=== PATIENT | male | born 1945 | race Caucasian/White ===

== ENCOUNTER → 2018-09-26 | Outpatient (REF) | payer MEDICARE, BC ==
[~2018-09-26] MED LIST: ACYCLOVIR400 MG PO; ADLT ASA LOW81 MG PO; ADVAIR DISK1 INH; ALBUTEROL S2.5 MG/.5 IN; ASPIRIN EC325 MG PO; ASPIRIN325 MG PO; AVELOX400 MG PO; AZITHROMYCIN500 MG PO; BAYER ASA325 MG PO; BENICAR HCT1 TA1 PO; BENICAR40 MG PO; DEXAMETHASONE OS; DOXYCYCL HYC100 MG PO; ESCITALOPRAM OX10 MG PO; FENOFIBRATE MI134 MG PO; FLOMAX0.4 M1 PO; HYDROCHLOROT12.5 MG PO; LANCET MICRO XX; LASIX 40 MG40 MG/TAB PO; LASIX40 MG PO; LEVAQUIN750 MG PO; LORAZEPAM0.5 MG PO; LOSARTAN POTASS25 MG PO; METFORMIN500 MG PO; METFORMIN850 MG PO; METOPROL TAR50 MG PO; NEBULIZER COMPRESSOR; NEOMYCIN OS; NICOTINE T21 MG/PATC TD; NORVASC10 M1 PO; POLYMYXIN B OS; PREDNISONE10 MG PO; PREDNISONE20 MG PO; PREDNISONE5 MG PO; PROVENTIL HFA INH; SIMVASTATIN40 MG PO; SPIRIVA HANDIHALER IN; TOPROL XL50 MG PO; TRAMADOL HCL50 MG PO; XANAX0.25 MG PO; XANAX0.5 MG PO
[2018-09-26 17:50] LABS: HEMATOCRIT 46.1 % (39.0-50.0); HEMOGLOBIN 14.9 g/dl (14.0-18.0); IMMATURE GRANULOCYTES 0.8 % (0.0-5.0); MEAN CORPUSCULAR HGB 29.7 pG CALC (26.0-32.0); MEAN CORPUSCULAR HGB CONC 32.3 g/L CALC (32.0-36.0); NEUT# 8.83 thou/uL (1.82-7.42); RED BLOOD COUNT 5.01 mill/uL (4.70-6.10); RED CELL DISTRI WIDTH 14.2 % (11.5-15.5)
[2018-09-26 18:10] LABS: ALBUMIN 4.2 g/dL (3.2-5.0); BILIRUBIN, TOTAL 0.7 mg/dL (0.0-1.4); CHOLESTEROL HDL RATIO 5.2 (<4.4 (CALC)); CREATININE 1.7 mg/dL (0.7-1.3); POTASSIUM 4.6 mmol/l (3.5-5.1); TOTAL PROTEIN 7.3 g/dL (6.3-8.2)
[2018-09-26 18:40] LABS: TSH, 3RD GENERATION 3.96 uIU/mL (0.47 - 4.68)
== END | disposition home or self-care (01) ==
LOC: LAB 16:28
PROVIDERS: ATTEND Internal Medicine
DX: E11.9 Type 2 diabetes mellitus without complications (principal); I10 Essential (primary) hypertension; E78.49 Other hyperlipidemia

== ENCOUNTER 2019-08-20 | Emergency (ER) | payer MEDICARE, BC ==
[2019-08-20 20:46] LABS: HEMATOCRIT 52.1 % (39.0-50.0); HEMOGLOBIN 16.8 g/dl (14.0-18.0); IMMATURE GRANULOCYTES 0.8 % (0.0-5.0); MEAN CELL VOLUME 91.6 fL CALC (80.0-100.0); MEAN CORPUSCULAR HGB 29.5 pG CALC (26.0-32.0); MEAN CORPUSCULAR HGB CONC 32.2 g/L CALC (32.0-36.0); NEUT# 13.76 thou/uL (1.82-7.42); RED BLOOD COUNT 5.69 mill/uL (4.70-6.10); RED CELL DISTRI WIDTH 14.6 % (11.5-15.5)
[2019-08-20 21:00] LABS: ALBUMIN 4.1 g/dL (3.2-5.0); CREATININE 1.8 mg/dL (0.7-1.3); POTASSIUM 3.7 mmol/l (3.5-5.1); TOTAL PROTEIN 7.9 g/dL (6.3-8.2)
[2019-08-20 21:04] LABS: BILIRUBIN, TOTAL 2.4 mg/dL (0.0-1.4)
[2019-08-20] MEDS ORDERED: LIPITOR20 M1 PO (21:10)
[2019-08-20] MEDS ORDERED: ESCITALOPRAM OX10 MG PO (21:11)
[2019-08-20] MEDS ORDERED: TOUJEO SOL300 UNIT/M (21:12)
[2019-08-20 21:19] LABS: INTERNATIONAL NORMALIZED RATIO 1.3 RATIO (0.7-1.3); PROTHROMBIN TIME 13.4 SECONDS (9.0-12.5)
[2019-08-20 21:28] LABS: D-DIMER > 35.00 mg/L (0.19-0.60)
[2019-08-20 21:34] LABS: MAGNESIUM 2.2 mg/dL (1.6-2.3)
[2019-08-20 23:25] LABS: HEMATOCRIT 45.8 % (39.0-50.0); HEMOGLOBIN 14.7 g/dl (14.0-18.0); IMMATURE GRANULOCYTES 1.4 % (0.0-5.0); MEAN CELL VOLUME 91.8 fL CALC (80.0-100.0); MEAN CORPUSCULAR HGB 29.5 pG CALC (26.0-32.0); MEAN CORPUSCULAR HGB CONC 32.1 g/L CALC (32.0-36.0); NEUT# 21.65 thou/uL (1.82-7.42); RED BLOOD COUNT 4.99 mill/uL (4.70-6.10); RED CELL DISTRI WIDTH 14.6 % (11.5-15.5)
== END 2019-08-21 01:05 | disposition expired ==
PROVIDERS: Family Medicine
PROC: 0BH17EZ Insertion of Endotracheal Airway into Trachea, Via Natural or Artificial Opening (ICD-10-PCS; principal; 2019-08-21)
PROC: 5A1935Z Respiratory Ventilation, Less than 24 Consecutive Hours (ICD-10-PCS; 2019-08-21)
PROC: 5A12012 Performance of Cardiac Output, Single, Manual (ICD-10-PCS; 2019-08-21)
DX: I26.99 Other pulmonary embolism without acute cor pulmonale (principal); J44.1 Chronic obstructive pulmonary disease with (acute) exacerbation; D72.829 Elevated white blood cell count, unspecified; E11.9 Type 2 diabetes mellitus without complications; F17.200 Nicotine dependence, unspecified, uncomplicated; Z79.4 Long term (current) use of insulin
CPT/HCPCS: J1644